=== PATIENT | male | born 1960 | race Caucasian/White ===

== ENCOUNTER 2018-09-04 16:23 | Inpatient (IN) | payer OTHER ==
[~2018-09-04] VITALS: Ht 185.4 cm; Wt 105.7 kg
--- NOTE | ~2018-09-04 | MORECARE ---
CASE MANAGEMENT DISCHARGE SUMMARY PATIENT: RAFY TRAORE UNIT: [id number] ADM DATE: 09/04/18 AGE: 57 : 62 SEX: M ROOM/BED: D.4635 AUTHOR: ROYAL RUTLEDGE PHYSICIAN: REFERRING PHYSICIAN: RADHA TONY MD DATE OF SERVICE: 09/06/18 Discharge Plan Patient Name: RAFY TRAORE Facility: [facility]:[place] : 1960 Planned Disposition: Home Anticipated Discharge Date: 09/06/18 Discharge Date: 09/06/2018 Expected LOS: 2 Initial Reviewer: [email or web address] Initial Review Date: 09/06/2018 Generated: 09/06/18 3:28 pm Comments DCP- Discharge Planning Updated by [email or web address]: Janes Rosa on 09/06/18 1:[address] Patient Name: RAFY TRAORE Admission Status: ER Accout number: [id number] Admission Date: 09-04-2018 : 1960 Admission Diagnosis: Attending: RADHA TONY Current LOS: 2 Anticipated DC Date: 09-06-2018 Planned Disposition: Home Primary Insurance: PRIVATE [employer] Discharge Planning Comments: CM MET WITH PT AND SPOUSE IN ROOM TO DISCUSS DISCHARGE PLANNING AND NEEDS. RAFY TRAORE provided verbal consent to discuss current and ongoing needs with/in the presence of: SPOUSE KELSI. PT REPORTS LIVING AT HOME INDEPENDENTLY WITH SPOUSE. PT HAS NO MEDICAL EQUIPMENT AND NO OUTSIDE SERVICES ASSISTING IN THE HOME. CM DISCUSSED AVAILABILITY OF HOME HEALTH, REHAB SERVICES AND MEDICAL EQUIPMENT. PT DENIES DISCHARGE NEEDS, REPORTS HIS IS HERE TO PICK HIM UP FOR DISCHARGE HOME TODAY. PHOTOENGRAVER APPRENTICE NURSE NOTIFIED. Aviation Warfare Systems Operator: Janes Rosa DCPIA - Discharge Planning Initial Assessment Updated by [id number]: Janes Rosa on 09/06/18 2:23 pm * Is the patient Alert and Oriented? Yes * How many steps to enter\exit or inside your home? NONE * PCP DR LIM * Pharmacy [facility] [address] * Preadmission Environment Home with Family * ADLs Independent * Equipment None * Other Equipment NO MEDICAL EQUIPMENT PROVIDER PREFERENCE * List name and contact numbers for known caregivers / representatives who currently or will assist patient after discharge: KELSI CHAIDEZ, SPOUSE, * Verbal permission to speak to the caregivers and representatives has been obtained from the patient. Yes * Community resources currently utilized None * Please name any agencies selected above. NONE * Additional services required to return to the preadmission environment? No * Can the patient safely return to the preadmission environment? Yes * Has this patient been hospitalized within the prior 30 days at any hospital? No Patient Name: RAFY TRAORE Page 10300 at 1429 All edits/amendments must be made on the electronic document DICTATION DATE: 09/06/181427 LAVENDER FARM WORKER: PENELOPE 09/06/181427 RPT#: [id number] DC DATE:09/06/18 STATUS: DIS IN [facility] [address] [place] [address] END OF REPORT
--- NOTE | ~2018-09-04 | HEMODYNAMI ---
PATIENT:RAFY TRAORE MEDICAL RECORD: [id number] : 62 [id number] ADMISSION DATE: 09/04/18 Generatedon:09/05/201816:12 Patient name: RAFY TRAORE Patient #: [id number] SSN: [id number] : 1960 Date of study: 09/05/2018 Page: Of Hemodynamic Procedure Report Patient Data Patient Demographics Procedure consent was obtained First Name: RAFY Gender: Male Last Name: LEÓN : 1960 [facility] Initial: CHASTITY Age: 57 year(s) Patient #: [id number] Race: Unknown SSN: [id number] Additional ID: [id number] Contact details Address: [address] State: [place] City: [place] Zip code: [address] Past Medical History Allergies: No known allergies Admission Admission Data Admission Date: 09/04/2018 Admission Time: 19:05 Admit Source: Other Room #: D.2123 Lab Results Lab Result Date: 09/05/2018 Lab Result Time: 5:34 Biochemistry Name Units Result Min Max BUN mg/dl 9 --(*---)-- 7 18 Creatinine mg/dl 0.8 --(-*--)-- 0.6 1.3 CBC Name Units Result Min Max Hematocrit % 42.3 --(*---)-- 42 54 Hemoglobin g/dl 14.3 --(*---)-- 13.5 17.5 Procedure Procedure Types Cath Procedure Diagnostic Procedure LHC LHC w/Coronaries Sedation Charges Moderate Sedation up to 15 minutes PCI Procedure PTCA PTCA Initial Procedure Description Procedure Date Procedure Date: 09/05/2018 Procedure Start Time: 15:46 Procedure End Time: 16:06 Procedure Staff Name Function Jabier Frias MD Performing Physician Samuel Shaikh RT Monitor Orlando Kelsey RT Scrub Erica Colunga RN Nurse Anca Sandhu RT Monitor Procedure Data Cath Procedure Fluoroscopy Diagnostic fluoroscopy Total fluoroscopy Time: 3.7 time: 3.7 min min Diagnostic fluoroscopy Total fluoroscopy dose: 845 dose: 845 mGy mGy Contrast Material Contrast Material Type Amount (ml) Isovue 300 101 Entry Location Entry Primary Successful Side Size Upsize Upsize Entry Closure Succes sful Closure Location (Fr) 1 (Fr) 2 (Fr) Remarks Device Remarks Femoral Right 5 Fr 6 Fr Exoseal artery Short Estimated blood loss: 5 ml Diagnostic catheters Device Type Used For End Catheter Placement Medtronic Dexterity 5Fr Procedure JL 4.0 catheter (NO COST SUPPLY) Medtronic Dexterity 5Fr Procedure 3DRC catheter (NO COST SUPPLY) Medtronic Dexterity 5Fr LV Angiography Pigtail catheter(NO COST SUPPLY) Procedure Complications No complications Procedure Medications Medication Administration Route Dosage Oxygen etCO2 Nasal cannula 2 l/min Lidocaine 2% added to field 20 Heparin Flush Bag added to field 2 bags (1000units/500ml NS) 0.9% NaCl I.V. 100 ml/hr Versed I.V. 2 mg Fentanyl I.V. 100 mcg Versed I.V. 1 mg Fentanyl I.V. 50 mcg Versed I.V. 1 mg Fentanyl I.V. 50 mcg Heparin Bolus I.V. 4000 units Hemodynamics Rest HGB: 14.3 (g/dl) Heart Rate: 62 (bpm) Pressure Samples Time Site Value (mmHg) Purpose Heart Use Rate(bpm) 15:52 LV 114/10,15 Snapshot 58 Gradients Valve Time Site Site Mean SEP/DFP Peak To Heart Use 1 2 (mmHg) (sec/min) Peak Rate (mmHg) (bpm) Aortic 15:53 LV AO 60 Snapshots Pre Cath Intra NCS Post Cath Vital Signs Time Heart Resp SPO2 etCO2 NIBP (mmHg) Rhythm Pain Sedation Rate (ipm) (%) (mmHg) Status Level (bpm) 15:35:12 62 19 94 29.4 145/82(115) NSR 0 (11) 10(A) , No pain 15:39:28 65 19 92 10.5 131/77(99) NSR 0 (11) 10(A) , No pain 15:43:41 62 18 93 30.2 118/74(94) NSR 0 (11) 10(A) , No pain 15:47:48 56 18 94 25.6 130/76(102) NSR 0 (11) 9(A) , No pain 15:52:02 60 13 94 30.2 108/70(81) NSR 0 (11) 9(A) , No pain 15:56:08 62 12 94 34 106/67(84) NSR 0 (11) 9(A) , No pain 16:00:12 67 13 93 34 122/72(97) NSR 0 (11) 9(A) , No pain 16:04:20 68 13 93 33.2 131/80(107) NSR 0 (11) 9(A) , No pain Medications Time Medication Route Dose Verified Delivered Reason Notes Effectiveness by by 15:38:25 Oxygen etCO2 2 Jabier Buffie used for Nasal l/min St Gerardo Colunga RN procedure cannula 15:38:31 Lidocaine 2% added 20ml Jabier Jabier for local to vial [facility] anesthetic field MD MALLORY 15:38:38 Heparin Flush added 2 Jabier Jabier used for Bag to bags [facility] procedure (1000units/500ml field MD MALLORY NS) 15:38:46 0.9% NaCl I.V. 100 Jabier Buffie Per physician ml/hr St Gerardo Colunga RN, MD 15:44:03 Versed I.V. 2 mg Jabier Buffie for sedation St Gerardo Colunga RN, MD 15:44:08 Fentanyl I.V. 100 Jabier Buffie for sedation [facility] St Gerardo Colunga RN, MD 15:47:13 Versed I.V. 1 mg Jabier Buffie for sedation St Gerardo Colunga RN, MD 15:47:16 Fentanyl I.V. 50 Jabier Buffie for sedation mcg [address] Gerardo Colunga RN, MD 15:53:26 Versed I.V. 1 mg Jabier Buffie for sedation St Gerardo Colunga RN, MD 15:53:29 Fentanyl I.V. 50 Jabier Buffie for sedation mary Mina RN, MD 15:54:49 Heparin Bolus I.V. 4000 Jabier Buffie for verif ied units St Gerardo Colunga RN anticoagulation with dr MD tan Procedure Log Time Note 15:16:39 Informed consent obtained and on chart 15:16:42 Admit Source: Other 15:16:59 Diagnostic Cath status Elective 15:17:01 Orlando Kelsey RT(R) sent for patient. Start room use. 15:17:02 Time tracking: Regular hours (M-F 7:00 - 5:00) 15:17:05 Plan of Care:Hemodynamics will remain stable., Cardiac rhythm will remain stable., Comfort level will be maintained., Respiratory function will remain adequate., Patient/ family verbilizes understanding of procedure., Procedure tolerated without complication., Recovers from procedure without complications.. 15:19:55 H&P Date Dictated: 09/04/2018 Within 30 days and on chart.. 15:28:12 Patient received from Med II to CCL 2 Alert and oriented. Tansferred to table in Supine position. 15:28:13 Warm blankets applied, and samym hugger turned on for patient comfort. 15:28:13 Correct patient and procedure confirmed by team. 15:28:14 ECG and BP/O2 sat monitors applied to patient. 15:28:15 Pre-procedure instructions explained to patient. 15:28:15 Pre-op teaching completed and patient verbalized understanding. 15:28:16 Family in waiting room. 15:28:19 Patient NPO since Breakfast. 15:28:25 Patient allergic to No known allergies 15:28:26 Is the patient allergic to Iodine/contrast media? No. 15:34:09 Vital chart was started 15:37:14 Baseline sample Acquired. 15:37:29 Rhythm: sinus rhythm 15:37:30 Full Disclosure recording started 15:38:25 Oxygen 2 l/min etCO2 Nasal cannula was administered by Erica Colunga RN; used for procedure; 15:38:31 Lidocaine 2% 20ml vial added to field was administered by Jabier Frias MD; for local anesthetic; 15:38:38 Heparin Flush Bag (1000units/500ml NS) 2 bags added to field was administered by Jabier Frias MD; used for procedure; 15:38:46 0.9% NaCl 100 ml/hr I.V. was administered by Erica Colunga RN; Per physician; 15:40:23 Is patient on blood thinner?Yes 15:40:24 ACC The patient was administered the following blood thiners within the last 24 hours: ACCPlavix 15:40:26 Patient diabetic? No. 15:40:28 Previous problem with sedation/anesthesia? No ? 15:40:29 Snore? Yes 15:40:30 Sleep apnea? No 15:40:31 Deviated septum? No 15:40:37 Opens mouth fully? Yes 15:40:37 Sticks out tongue? Yes 15:40:41 Airway obstruction? Yes COPD 15:40:43 Dentures? No ? 15:40:45 Pre procedure: right dorsailis pedis pulse 2+ Normal; easily identifiable; not easily obliterated 15:40:47 Patient pain scale 0/10 ?. 15:40:51 IV patent on arrival in right forearm with 0.9% NaCl at [facility]. 15:41:22 Lab Result : Creatinine 0.8 mg/dl 15:41:22 Lab Result : BUN 9 mg/dl 15:41:22 Lab Result : Hemoglobin 14.3 g/dl 15:41:22 Lab Result : Hematocrit 42.3 % 15:41:24 Lab results completed and on chart. 15:41:27 Right groin area was prepped with chlora-prep and draped in sterile fashion 15:41:28 Alarms reviewed by R. N. 15:41:28 Sharps counted by scrub and verified by R.N. 15:41:32 ACIST Syringe (78551) opened to sterile field. 15:41:33 Bag Decanter (2002S) opened to sterile field. 15:41:33 Medline Cath Pack ([id number]) opened to sterile field. 15:41:35 ACIST Hand Control (89859) opened to sterile field. 15:41:35 ACIST Manifold (79310) opened to sterile field. 15:41:36 Tegaderm 4 x 4 (1626W) opened to sterile field. 15:41:37 SHEATH Prelude 5Fr 0.035 (XOL-5W-74-035) opened to sterile field. 15:41:38 DIAGNOSTIC WIRE .035 260cm J wire (195750) opened to sterile field. 15:41:58 Physician arrived 15:41:58 --------ALL STOP TIME OUT------ 15:41:59 Final Timeout: patient, procedure, and site verified with staff and physician. All members of the team are in agreement. 15:42:01 Right groin site verified by team. 15:42:03 Physical assessment completed. ASA score P 2 - A patient with mild systemic disease as per Jabier Frias MD. 15:42:06 Sedation plan: IV Moderate Sedation Medication:Versed, Fentanyl 15:44:03 Versed 2 mg I.V. was administered by Erica Colunga RN; for sedation; 15:44:08 Fentanyl 100 mcg I.V. was administered by Erica Colunga RN; for sedation; 15:46:06 Procedure started. 15:46:09 Local anesthetic to right femoral artery with Lidocaine 2% by Jabier Frias MD.INITIAL ACCESS ONLY 15:46:16 A 5 Fr sheath was inserted into the Right Femoral artery 15:47:13 Versed 1 mg I.V. was administered by Erica Colunga RN; for sedation; 15:47:16 Fentanyl 50 mcg I.V. was administered by Erica Colunga RN; for sedation; 15:48:26 Zero performed for pressure channel P1 15:49:53 A Medtronic Dexterity 5Fr JL 4.0 catheter (NO COST SUPPLY) was advanced over the wire and used for Procedure. 15:50:27 LCA angiography performed. 15:50:31 Catheter exchanged over wire. 15:50:35 A Medtronic Dexterity 5Fr 3DRC catheter (NO COST SUPPLY) was advanced over the wire and used for Procedure. 15:51:38 RCA angiography performed. 15:51:40 Injector settings: Ml/sec: 3, Volume: 6, 15:51:58 Catheter removed. 15:52:24 A Medtronic Dexterity 5Fr Pigtail catheter(NO COST SUPPLY) was advanced over the wire and used for LV Angiography. 15:52:47 LV hemodynamics recorded. 15:52:48 LV gram done using ZAPATA 15:52:50 Injector settings: Ml/sec: 5, Volume: 15, 15:53:08 EF : 50 % 15:53:21 Catheter removed. 15:53:22 Proceeding to intervention. 15:53:26 Versed 1 mg I.V. was administered by Erica Colunga RN; for sedation; 15:53:29 Fentanyl 50 mcg I.V. was administered by Erica Colunga RN; for sedation; 15:53:48 WHISPER 300cm guide wire ([id number]) opened to sterile field. 15:54:07 GUIDE 6FR HS I SH catheter ([id number]) opened to sterile field. 15:54:08 SHEATH Prelude 6Fr 0.035 (OTN-3X-93-035) opened to sterile field. 15:54:27 INFLATOR Merit Jose Rafaelpak (UE7305) opened to sterile field. 15:54:35 Sheath upsized to a 6 Fr Short. 15:54:45 6 Fr HS 1 SH guide catheter was inserted over the wire 15:54:49 Heparin Bolus 4000 units I.V. was administered by Erica Colunga RN; for anticoagulation; verified with dr tan 15:56:06 WHISPER wire advanced. 15:56:46 Wire advanced across lesion. 15:57:55 Inflate balloon Inflation number: 1 A EMERGE OTW 3.0 x 20 balloon ([id number]) was prepped and advanced across the Prox RCA, then inflated to 14 MICHAEL for 0:30 (min:sec). 15:59:04 Inflation number: 2 The EMERGE OTW 3.0 x 20 balloon ([id number]) was reinflated across the Prox RCA, to 14 MICHAEL for 0:30 (min:sec). 15:59:33 Balloon removed over the wire. 16:01:46 Inflate balloon Inflation number: 3 A EMERGE OTW 3.5 x 20 balloon ([id number]) was prepped and advanced across the Prox RCA, then inflated to 14 MICHAEL for 0:30 (min:sec). 16:02:50 Balloon removed over the wire. 16:02:51 Wire removed. 16:02:51 Guide catheter removed. 16:03:24 EXOSEAL 6Fr (EX600) opened to sterile field. 16:04:35 Sheath removed intact; hemostasis achieved with Exoseal to the Right Femoral artery. 16:04:37 Procedure ended.(Physican Out) 16:05:03 Fluoroscopy time 03.70 minutes. 16:05:14 Fluoroscopy dose: 845 mGy 16:05:14 Flurop Dose total: 845 16:05:25 Contrast amount:Isovue 300 101ml. 16:05:26 Sharps counted by scrub and verified by R.N. 16:05:27 Insertion/operative site no bleeding no hematoma. 16:05:30 Post-op/insertion site Right Femoral artery dressed using a 4 x 4 and Tegaderm. 16:05:33 Post right femoral artery:stable 16:05:37 Post procedure rhythm: unchanged. 16:05:39 Estimated blood loss: 5 ml 16:05:42 Post procedure instruction explained to patient.Patient verbalizes understanding. 16:05:42 Patient needs reinforcement of post procedure teaching. 16:06:02 Procedure type changed to Cath procedure, Diagnostic procedure, LHC, LHC w/Coronaries, Sedation Charges, Moderate Sedation up to 15 minutes, PCI procedure, PTCA, PTCA Initial 16:06:03 Procedure and supply charges have been captured, reviewed, submitted and are correct. 16:06:07 Procedure Complication : No complications 16:06:09 Vital chart was stopped 16:06:10 See physician's report for complete and final results. 16:06:32 Report given to [facility]. 16:06:35 Patient transfered to [facility] with Stretcher. 16:06:37 Procedure ended. 16:06:37 Full Disclosure recording stopped 16:06:57 ACC-PCI Only Patient was given prescriptions, or instructed by Jabier Frias MD to start/continue the following medications upon discharge: Plavix 16:06:58 End room use (Document Last) Intervention Summary Intervention Notes Time ActionType Lesion and Equipment Action# Pressure Duration Attributes Used 15:57:55 Inflate Prox RCA EMERGE OTW 1 14 00:30 balloon 3.0 x 20 balloon ([id number]) 15:59:04 Reinflate Prox RCA EMERGE OTW 2 14 00:30 balloon 3.0 x 20 balloon ([id number]) 16:01:46 Inflate Prox RCA EMERGE OTW 3 14 00:30 balloon 3.5 x 20 balloon ([id number]) Device Usage Item Name Manufacture Quantity Catalog Number Hospital Part Current Minimal Lot# / Charge Number Stock Stock Serial# Code ACIST Syringe Acist 1 92612 430992 260240 434777 20 (08141) Medical Systems Inc Bag Decanter Microtek 1 2001S 153546 67052 926245 5 (2001S) Medical Inc. Medline Cath Medline 1 [id number] 484929 47804 913452 5 Pack ([id number]) ACIST Hand Acist 1 26652 061274 326843 905412 5 Control (10505) Medical [employer] Inc ACIST Manifold Acist 1 33142 902009 733186 012496 5 (57860) Medical Systems Inc Tegaderm 4 x 4 3M 1 1626W 222960 048136 356161 5 (1626W) SHEATH Prelude Merit 1 [id number] 394546 252304 647463 5 5Fr 0.035 Medical (HRM-1A-42-035) DIAGNOSTIC WIRE St Jesus 1 222515 618646 857134 059522 30 .035 260cm J wire (691836) Medtronic Medtronic 1 [id number] 801797 756340 5 Dexterity 5Fr JL 4.0 catheter (NO COST SUPPLY) Medtronic Medtronic 1 [id number] 247420 670377 5 Dexterity 5Fr 3DRC catheter (NO COST SUPPLY) Medtronic Medtronic 1 [id number] 536188 659885 5 Dexterity 5Fr Pigtail catheter(NO COST SUPPLY) WHISPER 300cm Cotto 1 [id number] 684530 163138 504152 5 guide wire Vascular ([id number]) GUIDE 6FR HS I Medtronic 1 [id number] 464140 42512 911675 1 SH catheter ([id number]) SHEATH Prelude Merit 1 SDJ-4N-2535 283966 9826934 061423 5 6Fr 0.035 Medical (KXB-4C-74-035) INFLATOR Merit Merit 1 IU6443 790961 973411 807539 15 BasixCompak Medical (WJ1930) EMERGE OTW 3.0 Coventry 1 [id number] 020723 984500 439914 5 [id number] x 20 balloon Scientific ([id number]) EMERGE OTW 3.5 [employer]entry 1 [id number] 407447 957322 656097 5 16423616 x 20 balloon Scientific ([id number]) EXOSEAL 6Fr Cardinal 1 EX600 600391 978994 211920 10 (EX600) Health Signature Audit [place] Stage Time Signature Unsigned Intra-Procedure 09/05/2018 Anca Sandhu 4:12:13 PM RT(R) Signatures Monitor : Samuel Shaikh RT Signature : Date : Time : Monitor : Anca Sandhu RT Signature : Date : Time : [address] [address]
--- NOTE | ~2018-09-04 | OP ---
PATIENT NAME: RAFY TRAORE MEDICAL RECORD: [id number] :62 LOCATION:D.M2 D.2123 ADMISSION DATE:09/04/18 SURGEON: CARISSA HUTCHINS MD DATE OF OPERATION: 09/05/2018 PROCEDURE: Left heart catheterization and selective coronary angiography plus STENO TYPIST of right coronary, right femoral artery approach. CATHETERS: A 5-Swedish sheath, 5/4 left and right Starla, 5/4 pig. The procedure was well tolerated. The patient was returned to the herrera. Sheath was removed. ExoSeal device was placed. FINDINGS: On left ventriculography, inferior basilar hypokinesis. Overall function probably at lower limits of normal at 50%. CORONARY ANATOMY: LEFT MAIN: Left main is free of disease. LAD: An area of previous stenting is widely patent without evidence of restenosis. No progression of iqugmiut disease. CIRCUMFLEX: Circumflex is free of disease. RIGHT CORONARY ARTERY: In its most proximal stent, it has diffuse in-stent restenosis of 90%. IMPRESSION: Non-STEMI secondary to acute in-stent restenosis. PLAN: STENO TYPIST. DESCRIPTION OF PROCEDURE: The 5-Swedish sheath was exchanged for a 6-Swedish sheath. Hockey stick guiding catheter provided good guide catheter support followed by 300-cm Whisper wire was placed across the tightly restenosed stent down a portion of this vessel. Initial balloon used was a 3.0 x 20-mm Rhea up to 14 atmospheres. Still with significant residual; therefore, we upsized to 3.5 x 20 mm Rhea up to 14 atmospheres. Final angiography shows excellent resolution of diffuse in-stent 90% stenosis to no significant residual. LAUREN flow was 3 throughout the procedure. Heparin was used in the case. Sheath was closed with ExoSeal device. TRANSINT:[id number] Voice Confirmation ID: [id number] DOCUMENT ID: [id number] CARISSA HUTCHINS MD at 2229 CC: [id number] DICTATION DATE: 09/05/18 1617 COATING LINE WORKER: 09/05/18 1655 DIS IN 09/06/18 [id number] [place] [address]
--- NOTE | ~2018-09-04 | CN ---
PATIENT NAME:RAFY TRAORE MEDICAL RECORD: [id number] : 62 LOCATION:D. D.2123 ADMIT DATE: 09/04/18 ACCOUNT: [id number] CONSULTING PHYSICIAN: CARISSA HUTCHINS MD REFERRING PHYSICIAN: RADHA TONY MD DATE OF CONSULTATION: 09/05/2018 HISTORY OF PRESENT ILLNESS: This is a 57-year-old gentleman well known to me with history of coronary artery disease, status post intervention, has a history of dyslipidemia, actually was planning on moving, has lost to follow up after his last intervention. Continues to smoke around a pack a day. Reports compliance with his diet, not much exercise. He came with indigestion on Tuesday in a stuttering fashion, became acutely worse yesterday. He was found to have NSTEMI, is being admitted for further evaluation. PAST MEDICAL HISTORY: Includes: 1. History of dyslipidemia. 2. Hypertension. 3. Hyperlipidemia. 4. Hypothyroidism on replacement. MEDICATIONS: Include albuterol 2 puffs q.4 hours p.r.n., Synthroid 137 mcg every day, pravastatin 20 every day, Plavix 75 every day, Anoro Ellipta 1 puff every day. 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 No illicit drug use. Easily takes care of all his ADLs. REVIEW OF SYSTEMS: The patient reports easy bruising but reports no swollen glands. The patient reports no fever, no night sweats, no significant weight gain, no significant weight loss. No significant exercise tolerance. The patient reports no dry eyes, no irritation, no vision change. Patient reports no difficulty hearing and no ear pain. Patient reports no frequent nose bleeds or nose and sinus problems. Patient reports on arm pain on exertion. No shortness of breath while lying down. No history of heart murmur. Patient reports no cough, no wheezing or coughing up blood. Patient reports no abdominal pain, no vomiting. Normal appetite. No diarrhea and not vomiting blood. No nausea and no constipation. Patient reports no incontinence. No difficulty urinating. No hematuria. No increased frequency. Patient reports no muscle aches. No weakness, no arthralgias, no back pain. No swelling of the extremities. Patient reports no abnormal mole, no jaundice, no rashes. Reports no loss of consciousness. No weakness and no numbness. No seizures, dizziness, or headaches. The patient reports no depression, no sleep disturbance, feeling safe in a relationship and no alcohol abuse. Patient reports on fatigue. Reports no runny nose or sinus pressure. No itching, no hives, and no frequent sneezing. ALLERGIES: No known drug allergies. PHYSICAL EXAMINATION: GENERAL: Pleasant gentleman, appears comfortable at this point. VITAL SIGNS: Blood pressure 123/73, pulse 59 and regular. HEENT: Normocephalic, atraumatic. NECK: No bruits noted. HEART: Regular. A II/ systolic ejection murmur. CONSULT REPORT [id number] RAFY TRAORE LUNGS: Good air excursion. ABDOMEN: Soft, nontender. EXTREMITIES: Pulses well preserved, 2+. There is no edema. NEUROLOGIC: Grossly intact. DIAGNOSTIC DATA: ECG shows no acute ST-T changes. IMPRESSION: NSTEMI, known history of coronary artery disease. PLAN: For angiography, intervention based on above. TRANSINT:[id number] Voice Confirmation ID: [id number] DOCUMENT ID: [id number] CARISSA HUTCHINS MD at 2229 CC: [id number] DICTATION DATE: 09/05/18 0845 PRODUCTION MANUFACTURING WORKER: 09/05/18 1228 DIS IN 09/06/18 [address] [place] [address]
[~2018-09-04 16:23] MED LIST: BAYER CHEWABLE81 MG PO; FLUTICASONE PRO16 GM NASAL; LEVOTHYROXINE137 MCG PO; PLAVIX75 MG PO; PRAVACHOL20 MG PO
[2018-09-04 16:54] LABS: BASOPHILS 0.4 % (0-2); EOSINOPHILS 1.5 % (0-7); HEMATOCRIT 44.9 % (42.0-54.0); HEMOGLOBIN 15.6 g/dL (13.5-17.5); IMMATURE GRANULOCYTES 0.4 % (0-5); LYMPHOCYTES 43.4 % (15-50); MCH 31.7 pg (26.0-34.0); MCHC 34.7 g/dL (31.0-37.0); MCV 91.3 fL (80.0-100.0); MEAN PLATELET VOLUME 10.5 fL (7.4-10.4); MONOCYTES 7.8 % (2-11); NEUTROPHILS 46.5 % (40-80); PLATELET COUNT 220 10x3/uL (130-400); RBC 4.92 10x6/uL (4.20-6.10); WBC 9.9 10x3/uL (4.8-10.8)
[2018-09-04 17:09] LABS: APTT 30.4 SECONDS (22.8-39.4); INR 0.99 (0.85-1.17); PROTIME 12.7 SECONDS (11.6-15.0)
[2018-09-04 17:10] LABS: D-DIMER-QUANTITATIVE 0.27 ug/mLFEU (0.20-0.54)
[2018-09-04 17:19] LABS: ALBUMIN 4.1 g/dL (3.4-5.0); ALKALINE PHOSPHATASE 98 U/L (46-116); ALT (SGPT) 25 U/L (10-68); BILIRUBIN - TOTAL 0.32 mg/dL (0.2-1.3); CALC OSMOLALITY 270 mosm/kg (275-300); CALCIUM 9.1 mg/dL (8.5-10.1); CARBON DIOXIDE 23.3 mmol/L (21.0-32.0); CHLORIDE - SERUM 101 mmol/L (98-107); CREATININE - SERUM 0.9 mg/dL (0.6-1.3); GLUCOSE 87 mg/dL (74-106); POTASSIUM - SERUM 3.6 mmol/L (3.5-5.1); PROTEIN - SERUM 7.5 g/dL (6.4-8.2); SODIUM 137 mmol/L (136-145); UREA NITROGEN 6 mg/dL (7-18); eGFR NON AFRICAN AMERICAN > 90 mL/min (90-120)
[2018-09-04 17:35] LABS: CKMB 6.8 U/L (0.0-3.6); CREATINE KINASE 210 UL (21-232); PRO BNP 265 pg/mL (0-125)
[2018-09-04 17:39] LABS: TROPONIN-I 0.658 ng/mL (0.000-0.060)
[2018-09-04] MEDS ORDERED: ANORO ELLIPTA1 EACH INH (19:30)
[2018-09-04] MEDS ORDERED: ALBUTEROL SULF8.5 GM INH (19:30)
[2018-09-04 20:00] VITALS: BP 146/89
[2018-09-05 00:51] VITALS: BP 107/64
[2018-09-05 04:57] VITALS: BP 111/59
[2018-09-05 05:58] LABS: BASOPHILS 0.4 % (0-2); EOSINOPHILS 2.6 % (0-7); HEMATOCRIT 42.3 % (42.0-54.0); HEMOGLOBIN 14.3 g/dL (13.5-17.5); IMMATURE GRANULOCYTES 0.4 % (0-5); LYMPHOCYTES 40.8 % (15-50); MCH 31.2 pg (26.0-34.0); MCHC 33.8 g/dL (31.0-37.0); MCV 92.2 fL (80.0-100.0); MEAN PLATELET VOLUME 10.7 fL (7.4-10.4); MONOCYTES 10.6 % (2-11); NEUTROPHILS 45.2 % (40-80); PLATELET COUNT 185 10x3/uL (130-400); RBC 4.59 10x6/uL (4.20-6.10); RDW 14.1 % (11.5-14.5); WBC 7.7 10x3/uL (4.8-10.8)
[2018-09-05 06:37] LABS: CALCIUM 8.2 mg/dL (8.5-10.1); CARBON DIOXIDE 26.3 mmol/L (21.0-32.0); CHLORIDE - SERUM 107 mmol/L (98-107); CREATININE - SERUM 0.8 mg/dL (0.6-1.3); GLUCOSE 95 mg/dL (74-106); SODIUM 139 mmol/L (136-145); eGFR NON AFRICAN AMERICAN > 90 mL/min (90-120)
[2018-09-05 06:38] LABS: CALC OSMOLALITY 276 mosm/kg (275-300); POTASSIUM - SERUM 4.2 mmol/L (3.5-5.1); TROPONIN-I 2.441 ng/mL (0.000-0.060); UREA NITROGEN 9 mg/dL (7-18)
[2018-09-05 07:44] VITALS: BP 127/73
[2018-09-05 09:12] LABS: CALC OSMOLALITY 279 mosm/kg (275-300); CALCIUM 8.4 mg/dL (8.5-10.1); CARBON DIOXIDE 25.3 mmol/L (21.0-32.0); CHLORIDE - SERUM 107 mmol/L (98-107); CREATININE - SERUM 0.9 mg/dL (0.6-1.3); GLUCOSE 94 mg/dL (74-106); POTASSIUM - SERUM 4.4 mmol/L (3.5-5.1); SODIUM 141 mmol/L (136-145); UREA NITROGEN 9 mg/dL (7-18); eGFR NON AFRICAN AMERICAN > 90 mL/min (90-120)
[2018-09-05 10:28] VITALS: BMI 30.2
[2018-09-05 11:24] VITALS: BP 135/78
[2018-09-05 12:23] VITALS: Ht 185.4 cm; Wt 105.7 kg
[2018-09-05 20:00] VITALS: BP 134/76
[2018-09-05 20:10] LABS: APPEARANCE CLEAR (CLEAR); BILIRUBIN NEGATIVE (NEGATIVE); COLOR YELLOW (YELLOW); GLUCOSE NEGATIVE (NEGATIVE); KETONE NEGATIVE (NEGATIVE); NITRITE NEGATIVE (NEGATIVE); PROTEIN NEGATIVE (NEGATIVE); SPECIFIC GRAVITY 1.015 (1.005-1.020); UROBILINOGEN NORMAL (NORMAL)
[2018-09-05 20:12] LABS: UDS - AMPHET NEGATIVE QUAL (NEGATIVE); UDS - BARB NEGATIVE QUAL (NEGATIVE); UDS - BENZO POSITIVE QUAL (NEGATIVE); UDS - COCAINE NEGATIVE QUAL (NEGATIVE); UDS - OPIATE NEGATIVE QUAL (NEGATIVE); UDS - PCP NEGATIVE QUAL (NEGATIVE); UDS - THC NEGATIVE QUAL (NEGATIVE)
[2018-09-06 01:10] VITALS: BP 100/51
[2018-09-06 06:06] VITALS: BP 119/72
[2018-09-06 06:52] LABS: BASOPHILS 0.5 % (0-2); HEMATOCRIT 42.1 % (42.0-54.0); HEMOGLOBIN 14.3 g/dL (13.5-17.5); IMMATURE GRANULOCYTES 0.2 % (0-5); LYMPHOCYTES 36.5 % (15-50); MCH 31.3 pg (26.0-34.0); MCV 92.1 fL (80.0-100.0); MEAN PLATELET VOLUME 10.6 fL (7.4-10.4); MONOCYTES 11.6 % (2-11); NEUTROPHILS 48.2 % (40-80); PLATELET COUNT 194 10x3/uL (130-400); RBC 4.57 10x6/uL (4.20-6.10); RDW 13.9 % (11.5-14.5); WBC 8.6 10x3/uL (4.8-10.8)
[2018-09-06 07:18] LABS: CALC OSMOLALITY 275 mosm/kg (275-300); CALCIUM 8.1 mg/dL (8.5-10.1); CARBON DIOXIDE 26.5 mmol/L (21.0-32.0); CHLORIDE - SERUM 106 mmol/L (98-107); CHOL - HDL RATIO 3.5 ratio (2.3-4.9); CHOLESTEROL, TOTAL 131 mg/dL (0-200); CREATININE - SERUM 0.9 mg/dL (0.6-1.3); GLUCOSE 97 mg/dL (74-106); HDL CHOLESTEROL 37 mg/dL (32-96); LDL CHOLESTEROL 80 mg/dL (0-100); LDL-HDL RATIO 2.2 ratio (1.5-3.5); POTASSIUM - SERUM 4.1 mmol/L (3.5-5.1); SODIUM 140 mmol/L (136-145); TRIGLYCERIDE 74 mg/dL (30-200); UREA NITROGEN 5 mg/dL (7-18); eGFR NON AFRICAN AMERICAN > 90 mL/min (90-120)
[2018-09-06 08:14] VITALS: BP 126/71
[2018-09-06 11:52] VITALS: BP 120/70
[2018-09-06] MEDS ORDERED: ASPIRIN81 MG PO (13:33)
== END 2018-09-06 14:26 | disposition home or self-care (01) | DRG 251 ==
LOC: D.ER 16:23 → D.M2 19:05
PROVIDERS: Family Medicine; Internal Medicine Interventional Cardiology; Internal Medicine Nephrology
PROC: B2111ZZ Fluoroscopy of Multiple Coronary Arteries using Low Osmolar Contrast (ICD-10-PCS; 2018-09-05)
PROC: B2151ZZ Fluoroscopy of Left Heart using Low Osmolar Contrast (ICD-10-PCS; 2018-09-05)
PROC: 02703ZZ Dilation of Coronary Artery, One Artery, Percutaneous Approach (ICD-10-PCS; principal; 2018-09-05 10:30)
PROC: 4A023N7 Measurement of Cardiac Sampling and Pressure, Left Heart, Percutaneous Approach (ICD-10-PCS; 2018-09-05 10:30)
DX: I21.A9 Other myocardial infarction type (principal); T82.857A Stenosis of other cardiac prosthetic devices, implants and grafts, initial encounter; F17.213 Nicotine dependence, cigarettes, with withdrawal; I25.119 Atherosclerotic heart disease of native coronary artery with unspecified angina pectoris; J44.9 Chronic obstructive pulmonary disease, unspecified